=== PATIENT | male | born 1945 | race Caucasian/White ===

== ENCOUNTER 2018-06-06 01:36 | Emergency (ER) | payer OTHER ==
[~2018-06-06] VITALS: Ht 172.7 cm; Wt 68.0 kg
--- NOTE | ~2018-06-06 | EKG ---
[address] [address] ELECTROCARDIOGRAM REPORT Name: PAUL CHAN Jhonny Room #: [facility] [id number] Admission: 06/06/18 Attend Phys: Discharge: 06/06/18 Date of : 45 Report #: [id number] THIS REPORT FOR: //name// [facility] ED Test Date: 2018-06-06 Test Time: 01:41:57 Pat Name: PAUL CHAN Department: Room: Gender: M Continuous Improvement Director: [facility] : 1945 Requested By: Elsa Babcock Order Number: [id number] MD: Yonatan Allen Measurements Intervals [place] Rate: 66 P: 95 MS: 174 QRS: 62 QRSD: 91 T: 43 QT: 424 QTc: 445 Interpretive Statements Sinus rhythm No significant abnormality No previous ECG available for comparison Electronically Signed On 06-06-2018 8:02:05 CDT by Yonatan Allen [email or web address] <ELECTRONICALLY SIGNED> By: Yonatan Allen MD, [facility] 06/06/18 [id number] Yonatan Allen MD, FACC /EPI
[2018-06-06 02:26] LABS: ABSOLUTE NEUTROPHILS 4.7 thou/uL (1.4-8.2); BASOPHILS 1.1 % (0.0-2.0); EOSINOPHILS 2.2 % (0.0-3.0); HEMOGLOBIN 13.7 gm/dL (14.0-18.0); LYMPHOCYTES 29.2 % (24.0-44.0); MCH 28.8 pg (26.0-34.0); MCHC 34.3 g/dL (28.0-37.0); MCV 83.7 fL (80.0-100.0); MONOCYTES 9.2 % (1.0-8.0); PLATELET COUNT 189 thou/uL (150-400); POLYS 58.3 % (36.0-66.0); RBC 4.77 mil/uL (4.50-6.00); WBC 8.1 thou/uL (4.0-11.0)
[2018-06-06 02:32] LABS: CALCIUM 8.9 mg/dL (8.5-10.1); MAGNESIUM 2.1 mg/dL (1.8-2.4); POTASSIUM 3.9 mmol/L (3.5-5.1)
[2018-06-06 03:42] VITALS: BP 150/82
== END 2018-06-06 04:48 | disposition home or self-care (01) ==
LOC: ER 01:36
PROVIDERS: Emergency Medicine
DX: I10 Essential (primary) hypertension (principal); E78.00 Pure hypercholesterolemia, unspecified; N40.0 Benign prostatic hyperplasia without lower urinary tract symptoms; Z90.89 Acquired absence of other organs